=== PATIENT | male | born 1940 | race Caucasian/White ===

== ENCOUNTER 2017-08-21 14:54 | Outpatient (CLI) | payer MEDICARE, OTHER | END 2017-08-21 14:55 | disposition home or self-care (01) | LOC: BICULT 14:54 | PROVIDERS: ATTEND Urology | DX: N20.0 Calculus of kidney (principal); N28.1 Cyst of kidney, acquired; N40.0 Benign prostatic hyperplasia without lower urinary tract symptoms | CPT/HCPCS: 36415; 76770; 80053; 80061; 83540; 83550; 84443; 85025 ==

== ENCOUNTER 2019-04-01 11:14 | Outpatient (CLI) | payer MEDICARE, OTHER ==
--- NOTE | 2019-04-01 11:49 | ULT ---
Renal sonogram HISTORY: Flank pain. Renal calculi. FINDINGS: Right kidney is 10.5 cm length. No hydronephrosis. Small cysts are present, and measuring u p to 1.5 cm at the superior pole. Left kidney is 12.3 cm. No hydronephrosis. Multiple cysts. Largest is at the inferior pole, 2.7 cm. Urinary bladder is unremarkable. IMPRESSION: Bilateral renal cysts. No evidence of obstruction. No calculi directly visualized.
--- NOTE | 2019-04-01 13:23 | RAD ---
KUB: Date: 04/01/19 INDICATION: Existing renal stones. COMPARISON: Prior exam dated 08/21/17. FINDINGS: No suspicious calcifications are evident. There are scattered phleboliths within the lower pelvis. Doyle rgical suture is seen right of midline within the abdomen. There is scattered vascular calcification. There are prostatic calcifications in lower pelvis. There is scattered degenerative change. There is stable levoscoliosis of the lumbar spine. IMPRESSION: No suspicious calcifications. POS: OFF
== END 2019-04-01 11:15 | disposition home or self-care (01) ==
LOC: SCSULT 11:14
PROVIDERS: ATTEND Urology
DX: N20.0 Calculus of kidney (principal); N28.1 Cyst of kidney, acquired
CPT/HCPCS: 74018; 76770

== ENCOUNTER 2023-02-19 12:40 | Outpatient (CLI) | payer MEDICARE, OTHER | END 2023-02-19 12:41 | disposition home or self-care (01) | LOC: SCSRAD 12:40 | PROVIDERS: ATTEND Family Medicine Sports Medicine | DX: M79.18 Myalgia, other site (principal); M47.816 Spondylosis without myelopathy or radiculopathy, lumbar region; M16.0 Bilateral primary osteoarthritis of hip; Q76.49 Other congenital malformations of spine, not associated with scoliosis; M21.852 Other specified acquired deformities of left thigh; M21.851 Other specified acquired deformities of right thigh; M25.752 Osteophyte, left hip; M25.751 Osteophyte, right hip; M53.3 Sacrococcygeal disorders, not elsewhere classified; I87.8 Other specified disorders of veins | CPT/HCPCS: 72100; 72170 ==